=== PATIENT | male | born 1940 | race Caucasian/White ===

== ENCOUNTER 2021-07-22 09:50 | Emergency (ER) | payer OTHER, SELFPAY ==
[2021-07-22 10:04] VITALS: BP 146/62; PULSE 69; RESP 16; TEMP 37.2; O2SAT 97
--- NOTE | 2021-07-31 09:29 | ED.GENADULT ---
HPI - General Adult General Chief complaint: Dizziness Stated complaint: dizziness Source: patient and family (adult daughter) Mode of arrival: ambulatory Limitations: no limitations History of Present Illness HPI narrative: Pt is an 81 y/o CM who presents to the [facility] via pov for an evaluation for dizziness that has been present for approx 4 days. He also reports a clicking that starts in the occipital region and radiates up to parietal region. Denies taking OTC meds for symptoms. Nothing improves or worsen symptoms. Patient is concerned that something is wrong since the clicking has been worsening over the past 24 hours prompting today's visit. Related Data Home Medications Medication Instructions Recorded Confirmed amlodipine 10 mg PO DAILY 07/22/21 07/22/21 gabapentin 400 mg PO BID 07/22/21 07/22/21 hydrochlorothiazide 25 mg PO DAILY 07/22/21 07/22/21 losartan 50 mg PO DAILY 07/22/21 07/22/21 meloxicam 15 mg PO DAILY 07/22/21 07/22/21 metoprolol tartrate 50 mg PO DAILY 07/22/21 07/22/21 omeprazole 20 mg PO DAILY 07/22/21 07/22/21 simvastatin 40 mg PO DAILY 07/22/21 07/22/21 Allergies Allergy/AdvReac Type Severity Reaction Status Date / Time No Known Allergies Allergy Verified 07/22/21 10:39 Review of Systems Review of Systems: Pertinent negatives: fever, chills, sweats, change in appetite, poor p.o. intake, headache, lymphadenopathy, vision changes, swelling, erythema, weakness, syncope, vertigo, LOC, seizure activity, memory loss, difficulty with coordination/gait/equilibrium, paresthesias, abdominal pain, nausea, vomiting, diarrhea, constipation, shortness of breath, cough, chest pain, and heart palpitations/murmurs. [facility] Past Medical History Medical History (Updated 07/31/21 @ 09:33 by Harlan Ng, [employer], ) Arthus phenomenon GERD (gastroesophageal reflux disease) Hyperlipidemia Hypertension Peripheral neuropathy Comments I have reviewed and agree with the patient's past medical, surgical, social, and family hx as documented by the RN. There is no relevant family history pertinent to the presenting complaint. Exam Narrative: GENERAL: Well-appearing, well-nourished, and in no acute distress. HEAD: Normocephalic, atraumatic. No sinus tenderness or facial swelling appreciated. No evidence of ear bleeding or drainage from ears. No evidence of foreign bodies. No signs of basilar skull fracture: no hemotympanum, gomez's sign, or raccoon's eyes. EYES: PERRLA and EOMI. No evidence of erythema, swelling, or drainage. ENT: Bilateral external ears and ear canals normal. Bilateral TMs are normal. No TM perforation. Nares clear, no septal hematoma or epistaxis. Bilateral turbinates without erythema/ swelling. Mucous membranes moist and pink. Uvula is midline without erythema and swelling. No evidence of petechial rash, cobblestoning, lesions, ulcers, erythema, swelling, exudates, peritonsillar abscess, tenting, or drooling. Breath odor and voice normal. NECK: Supple. No injury or pain appreciated. No lymphadenopathy or nuchal rigidity appreciated. CHEST: Bilateral lung baer are clear to auscultation. No respiratory distress. No evidence of cough or pleuritic cp upon examination. No evidence of deformity, flail chest, hematomas, contusions, lacerations. HEART: Regular rate and rhythm. No murmur, gallop, or rub heard. ABDOMEN: Soft, nontender, nondistended, normal active bowel sounds in all quadrants. No guarding. No rebound tenderness. No pulsatile or palpable abdominal mass(es). No CVAT. No evidence of seat belt sign. BACK: Full ROM. No evidence of deformity, spasm, mass, spinal tenderness, or swelling. Bilateral SLR tests negative. EXTREMITIES: Normal range of motion. No edema. SKIN: Warm, dry, no rash. No evidence of loss of sensation. NEURO: No focal deficits. Alert and oriented x4. EXTREMITIES: No evidence of decreased ROM or pain with active/passive ROM. Pulses pa
== END 2021-07-22 11:25 | disposition short-term general hospital (02) ==
PROVIDERS: Emergency Provider Nurse Practitioner Family
DX: R42 Dizziness and giddiness (principal); K21.9 Gastro-esophageal reflux disease without esophagitis; E78.5 Hyperlipidemia, unspecified; I10 Essential (primary) hypertension; G62.9 Polyneuropathy, unspecified
CPT/HCPCS: 99202; G0463

== ENCOUNTER 2021-07-22 11:55 | Emergency (ER) | payer OTHER, SELFPAY ==
[2021-07-22 12:35] VITALS: BP 128/93; PULSE 73; RESP 18; TEMP 36.8; O2SAT 98
[2021-07-22 14:40] VITALS: BP 123/70; PULSE 74; O2SAT 97
== END 2021-07-23 03:53 | disposition left against medical advice (07) ==
DX: H93.19 Tinnitus, unspecified ear (principal)
CPT/HCPCS: 99199